=== PATIENT | male | born 1995 | race Caucasian/White ===

== ENCOUNTER 2019-04-02 19:53 | Emergency (ER) | payer SELFPAY ==
[2019-04-02 19:54] VITALS: BP 124/69; PULSE 86; RESP 16; TEMP 37; O2SAT 100; BMI 21.9
[2019-04-02 20:43] VITALS: RESP 16
--- NOTE | 2019-04-02 20:43 | ED.VISSUMM ---
- ER Visit Summary Date of Service: 04/02/19 Chief Complaint: Sore throat and cough History of Present Illness: The patient is a 24-year-old male notes 3 days of symptoms including subjective fever chills rhinorrhea sore throat cough and nausea. He is a tobacco user. Physical Examination: Afebrile vital signs stable Gen: Well-nourished well-developed Head: Normocephalic atraumatic Eyes: Perrl EOMI ENT: TMs clear nasal congestion swollen turbinates posterior oropharyngeal erythema no abscess noted evidence of postnasal drip moist mucous membranes Neck: Supple no lymphadenopathy no JVD nontender CVS: Regular rate rhythm no murmurs normal S1-S2 Respiratory: No distress clear to auscultation bilaterally chest nontender Abdomen: Soft nontender nondistended normal bowel sounds no masses Back: Nontender Extremity: Nontender no edema Skin: Normal color no rash Neuro: alert orientated ?3 CN II-XII intact normal strength sensation reflexes gait cerebellar Psych: Normal affect normal mood Emergency Department Course and Treatment: I believe this to be a viral upper respiratory infection. Patient be discharged home return if worsening or concerns Impression: 1. Viral upper respiratory infection This note was generated with [employer] dictation software. It may contain incorrect words, spelling, and punctuation that were not noted in review of the chart prior to signing ED Disposition - Plan for ED Patient: Disposition: Home or Assisted Living Instructions: URI, Viral, No Abx (Adult) Referrals: Ana David MD [STAFF PHYSICIAN] - 1 Week if not improving
== END 2019-04-02 20:45 | disposition home or self-care (01) ==
LOC: ED 20:51
PROVIDERS: Emergency Provider Emergency Medicine
DX: J06.9 Acute upper respiratory infection, unspecified (principal); Z72.0 Tobacco use
CPT/HCPCS: 99283